=== PATIENT | male | born 1985 | race Caucasian/White ===

== ENCOUNTER 2024-09-10 03:20 | Emergency (ER) | payer MEDICAID ==
[~2024-09-10] VITALS: Ht 188 cm; Wt 192.2 kg
[2024-09-10 03:32] VITALS: O2SAT 98
[2024-09-10 04:14] LABS: BASOPHILS % 0.9 % (0.0-2.0); EOSINOPHILS % 1.2 % (0.0-5.0); HEMATOCRIT. 33.8 % (42.0-52.0); HEMOGLOBIN. 11.1 g/dL (14.0-18.0); MEAN CORPUSCULAR HEMOGLOBIN 27.3 pg (28.0-32.0); MEAN CORPUSCULAR VOLUME 82.8 fL (80.0-94.0); MONOCYTES % 9.3 % (2.0-8.0); NEUTROPHILS % 64.6 % (40.0-76.0); PLATELET 267 x1000/uL (130-400); RED BLOOD CELL COUNT 4.08 mill/uL (4.7-6.1); RED CELL DISTRIBUTION WIDTH 15.4 % (11.6-14.6)
[2024-09-10 04:17] LABS: CHLORIDE 113 mEq/L (98-107); POTASSIUM 3.9 mEq/L (3.5-5.1); SODIUM 143 mEq/L (136-145)
[2024-09-10 04:18] LABS: CARBON DIOXIDE 25 mEq/L (21-32)
[2024-09-10 04:19] LABS: CALCIUM 8.4 mg/dL (8.7-10.4)
[2024-09-10 04:24] LABS: CREATININE 0.7 mg/dL (0.6-1.3); GLUCOSE 110 mg/dL (70-105); UREA NITROGEN BLOOD 13 mg/dL (9-23)
[2024-09-10 04:41] LABS: TROPONIN I HIGH SENSITIVITY 5 ng/L (3.0-53)
[2024-09-10] MEDS: APIXABAN 2.5 MG TABLET PO ONE (05:15)
[2024-09-10] MEDS ORDERED: APIX5TAB MT (05:41)
[2024-09-10] MEDS ORDERED: AMOX-494 MT (05:41)
[2024-09-10 05:55] VITALS: BP 155/87; PULSE 85; RESP 16; TEMP 36.78072; O2SAT 99
== END 2024-09-10 05:55 | disposition home or self-care (01) ==
LOC: ER 03:20
DX: R07.9 Chest pain, unspecified (principal); F17.200 Nicotine dependence, unspecified, uncomplicated; I10 Essential (primary) hypertension; F15.90 Other stimulant use, unspecified, uncomplicated; Z76.0 Encounter for issue of repeat prescription
CPT/HCPCS: 36415; 71045; 80048; 84484; 85025; 93005; 99285

== ENCOUNTER 2024-09-10 10:01 | Emergency (ER) | payer MEDICAID ==
[2024-09-10 05:55] VITALS: RESP 16
[~2024-09-10 10:01] MED LIST: AMOX-494 MT; APIX5TAB MT
[2024-09-10 10:27] VITALS: BP 103/76; PULSE 62; TEMP 98; O2SAT 99
== END 2024-09-10 14:50 | disposition left against medical advice (07) ==
LOC: ER 10:01
DX: R07.9 Chest pain, unspecified (principal); Z53.21 Procedure and treatment not carried out due to patient leaving prior to being seen by health care provider